=== PATIENT | female | born 1950 | race Caucasian/White ===

== ENCOUNTER 2024-04-18 13:53 | Emergency (ER) | payer MEDICARE ==
[~2024-04-18] VITALS: Ht 154.9 cm; Wt 52.4 kg
[2024-04-18] MEDS ORDERED: LEVOTHYROXINE50 MCG PO (14:24)
[2024-04-18] MEDS: TETANUS/DIPHTHERIA TOX ADULT 0.5 ML SYR IM ONE (14:47)
[2024-04-18] MEDS: BACITRACIN ZINC 0.9GM TP ONE (14:48)
[2024-04-18] MEDS: TRAMADOL HCL 50 MG TAB PO ONE (14:48)
[2024-04-18] MEDS ORDERED: CEPHALEXIN500 MG PO (15:16)
[2024-04-18] MEDS ORDERED: MUPIROCIN22 GM TOP (15:17)
[2024-04-18 15:37] VITALS: PULSE 86; RESP 14; TEMP 98.5; O2SAT 98
== END 2024-04-18 15:37 | disposition home or self-care (01) ==
LOC: FSED 14:02
DX: S61.213A Laceration without foreign body of left middle finger without damage to nail, initial encounter (principal); S61.215A Laceration without foreign body of left ring finger without damage to nail, initial encounter; W26.8XXA Contact with other sharp object(s), not elsewhere classified, initial encounter; Y92.89 Other specified places as the place of occurrence of the external cause; E03.9 Hypothyroidism, unspecified
CPT/HCPCS: 90471; 90714; 96372; 99283